=== PATIENT | male | born 1970 | race Caucasian/White ===

== ENCOUNTER 2020-06-07 13:36 | Inpatient (IN) | payer MEDICAID ==
[~2020-06-07] VITALS: Ht 165.1 cm; Wt 73.9 kg
[2020-06-07] MEDS ORDERED: DEXAMETHASONE 10 MG/ML VIAL IV ONE (14:00)
[2020-06-07] MEDS ORDERED: CEFTRIAXONE 1 G PREMIX 50 ML IV ONE (14:00)
[2020-06-07] MEDS ORDERED: AZITHROMYCIN 500 MG in DEXT 5% WATER 250 ML IV ONE (14:00)
[2020-06-07] MEDS ORDERED: SODIUM CHLORIDE 0.9% 1,000 ML IV ONE (14:00)
[2020-06-07 15:23] LABS: HEMATOCRIT. 32.7 % (42.0-52.0); HEMOGLOBIN. 10.2 g/dL (14.0-18.0); MEAN CORPUSCULAR HEMOGLOBIN 19.9 pg (28.0-32.0); MEAN CORPUSCULAR VOLUME 63.9 fL (80.0-94.0); MEAN PLATELET VOLUME 8.9 fl (7.4-10.4); PLATELET 317 x1000/uL (130-400); RED BLOOD CELL COUNT 5.11 mill/uL (4.7-6.1); RED CELL DISTRIBUTION WIDTH 20.1 % (11.6-14.6)
[2020-06-07 15:29] LABS: CHLORIDE 98 mEq/L (98-107)
[2020-06-07 15:35] LABS: D-DIMER 1.61 mg/L FEU (<0.50); INR 1.1; PROTHROMBIN TIME 11.5 sec (9.6-11.0)
[2020-06-07 15:51] LABS: PLATELET ESTIMATE NORMAL
[2020-06-07 15:58] LABS: FIBRINOGEN > 850 mg/dL (200-400)
[2020-06-07] MEDS ORDERED: ENOXAPARIN 80MG/0.8ML SYR SUBCUT ONE (16:15)
[2020-06-07] MEDS ORDERED: MAGNESIUM/ALUMINUM HYDROXIDE/SIMETHICONE 30ML UDC PO PRN (18:00)
[2020-06-07] MEDS ORDERED: ONDANSETRON HCL 4MG/2ML INJ IV PRN (18:00)
[2020-06-07] MEDS ORDERED: CLONIDINE 0.1MG TABLET PO PRN (18:00)
[2020-06-07] MEDS ORDERED: DOCUSATE SODIUM 100MG CAPSULE PO PRN (18:00)
[2020-06-07] MEDS ORDERED: IOHEXOL-350 100 ML BOTTLE ONE (22:02)
[2020-06-08] MEDS: CEFTRIAXONE 1 G PREMIX 50 ML IV SCH ×2 (04:25→20:52)
[2020-06-08] MEDS: ENOXAPARIN 40MG/0.4ML SYR SUBCUT SCH (08:30)
[2020-06-08 16:58] LABS: HEMATOCRIT. 31.2 % (42.0-52.0); HEMOGLOBIN. 9.6 g/dL (14.0-18.0); MEAN CORPUSCULAR HEMOGLOBIN 19.5 pg (28.0-32.0); MEAN CORPUSCULAR VOLUME 63.3 fL (80.0-94.0); MEAN PLATELET VOLUME 8.6 fl (7.4-10.4); PLATELET 356 x1000/uL (130-400); RED BLOOD CELL COUNT 4.93 mill/uL (4.7-6.1); RED CELL DISTRIBUTION WIDTH 20.1 % (11.6-14.6)
[2020-06-08 17:01] LABS: CHLORIDE 101 mEq/L (98-107)
[2020-06-08 17:31] LABS: PLATELET ESTIMATE NORMAL
[2020-06-08 18:12] LABS: CLARITY URINE CLEAR (CLEAR); COLOR URINE DARK YELLOW (YELLOW); KETONES URINE 4+ (NEGATIVE); LEUKOCYTE ESTERASE URINE TRACE (NEGATIVE); NITRITE URINE NEGATIVE (NEGATIVE); OCCULT BLOOD URINE 1+ (NEGATIVE); PROTEIN URINE 2+ (NEGATIVE); SPECIFIC GRAVITY URINE 1.027 (1.005-1.030)
[2020-06-08] MEDS ORDERED: AZITHROMYCIN 500 MG in DEXT 5% WATER 250 ML IV SCH (20:00)
[2020-06-09 04:00] VITALS: BP 104/62
[2020-06-09] MEDS: GUAIFENESIN 200MG/10ML SUGAR FREE UDC PO PRN (04:30)
[2020-06-09] MEDS: ACETAMINOPHEN 325MG TABLET PO PRN ×3 (04:30→21:31)
[2020-06-09 08:00] VITALS: BP 105/63
[2020-06-09] MEDS: ENOXAPARIN 40MG/0.4ML SYR SUBCUT SCH (09:18)
[2020-06-09 16:00] VITALS: BP 115/64
[2020-06-09 20:00] VITALS: BP 137/78
[2020-06-09] MEDS: CEFTRIAXONE 1,000 MG in DEXTROSE 5% WATER 50 ML IV SCH (21:11)
[2020-06-09] MEDS: AZITHROMYCIN 500 MG in DEXT 5% WATER 250 ML IV SCH (21:12)
[2020-06-10] VITALS: BP 128/66
[2020-06-10 04:00] VITALS: BP 112/76
[2020-06-10 08:00] VITALS: BP 114/74
[2020-06-10] MEDS: ENOXAPARIN 40MG/0.4ML SYR SUBCUT SCH (10:46)
[2020-06-10] MEDS: ACETAMINOPHEN 325MG TABLET PO PRN (10:56)
[2020-06-10 16:00] VITALS: BP 122/77
[2020-06-10] MEDS: DEXAMETHASONE 10 MG/ML VIAL IV SCH (17:36)
[2020-06-10 20:00] VITALS: BP 125/73
[2020-06-10] MEDS: CEFTRIAXONE 1,000 MG in DEXTROSE 5% WATER 50 ML IV SCH (22:01)
[2020-06-10] MEDS: AZITHROMYCIN 500 MG in DEXT 5% WATER 250 ML IV SCH (22:02)
[2020-06-11] VITALS: BP 118/60
[2020-06-11 04:00] VITALS: BP 113/76
[2020-06-11 08:00] VITALS: BP 111/68
[2020-06-11] MEDS: GUAIFENESIN 200MG/10ML SUGAR FREE UDC PO PRN (08:49)
[2020-06-11] MEDS: DEXAMETHASONE 10 MG/ML VIAL IV SCH (08:49)
[2020-06-11] MEDS: ENOXAPARIN 40MG/0.4ML SYR SUBCUT SCH (08:50)
[2020-06-11 09:10] LABS: CHLORIDE 96 mEq/L (98-107)
[2020-06-11 12:00] VITALS: BP 108/64
[2020-06-11 16:00] VITALS: BP 105/63
[2020-06-11 18:18] LABS: BG BASE EXCESS 3.1 mmol/L (-2.0-2.0); BG CARBOXYHEMOGLOBIN 0.3 % (0.5-1.5); BG DEOXYHEMOGLOBIN 14.7 % (0.0-5.0); BG FRACTION INSPIRED OXYGEN 100; BG HCO3 ACT 26.5 mmol/L (22.0-26.0); BG METHEMOGLOBIN 0.2 % (0.0-1.5); BG OXYGEN SATURATION 85.2 % (92.0-98.5); BG OXYHEMOGLOBIN 84.8 % (94.0-97.0); BG PCO2 36.1 mmHg (35.0-45.0); BG PH 7.484 (7.350-7.450); BG PO2 50.9 mmHg (75.0-100.0); BG SAMPLE SITE RIGHT BRACHIAL; BG TOTAL HEMOGLOBIN 10.4 g/dL (12.0-18.0); BG VENT MODE MASK - BIPAP
[2020-06-11 20:00] VITALS: BP 104/61
[2020-06-11] MEDS: AZITHROMYCIN 500 MG in DEXT 5% WATER 250 ML IV SCH (20:00)
[2020-06-11] MEDS: CEFTRIAXONE 1,000 MG in DEXTROSE 5% WATER 50 ML IV SCH (21:17)
[2020-06-12] VITALS (7 sets, daily range): BP systolic 115–124; BP diastolic 60–78
[2020-06-12] MEDS: DEXAMETHASONE 10 MG/ML VIAL IV SCH (09:10)
[2020-06-12] MEDS: ENOXAPARIN 40MG/0.4ML SYR SUBCUT SCH (09:11)
[2020-06-12] MEDS ORDERED: LORAZEPAM 2MG/ML CPJ IV PRN (11:45)
[2020-06-13] VITALS: BP 128/57
[2020-06-13 04:00] VITALS: BP 115/76
[2020-06-13 08:00] VITALS: BP 139/79
[2020-06-13] MEDS: DEXAMETHASONE 10 MG/ML VIAL IV SCH (08:25)
[2020-06-13] MEDS: ENOXAPARIN 40MG/0.4ML SYR SUBCUT SCH (08:25)
[2020-06-13 12:00] VITALS: BP 122/80
[2020-06-13 16:00] VITALS: BP 144/86
[2020-06-13 20:00] VITALS: BP 114/71
[2020-06-14 00:01] VITALS: BP 112/70
[2020-06-14 04:00] VITALS: BP 112/63
[2020-06-14 08:00] VITALS: BP 111/66
[2020-06-14] MEDS: DEXAMETHASONE 10 MG/ML VIAL IV SCH (08:16)
[2020-06-14] MEDS: ENOXAPARIN 40MG/0.4ML SYR SUBCUT SCH (08:16)
[2020-06-14 12:00] VITALS: BP 112/67
[2020-06-14 16:00] VITALS: BP 110/74
[2020-06-14 20:00] VITALS: BP 119/70
[2020-06-15] VITALS: BP 101/62
[2020-06-15 04:00] VITALS: BP 103/66
[2020-06-15] MEDS: ENOXAPARIN 40MG/0.4ML SYR SUBCUT SCH (08:21)
[2020-06-15] MEDS: DEXAMETHASONE 10 MG/ML VIAL IV SCH (08:22)
[2020-06-15 12:00] VITALS: BP 123/63
[2020-06-15 16:00] VITALS: BP 96/63
[2020-06-15 20:00] VITALS: BP 123/79
[2020-06-16] VITALS: BP 129/79
[2020-06-16 04:00] VITALS: BP 124/75
[2020-06-16 08:00] VITALS: BP 126/78
[2020-06-16] MEDS: ENOXAPARIN 40MG/0.4ML SYR SUBCUT SCH (09:33)
[2020-06-16] MEDS: DEXAMETHASONE 10 MG/ML VIAL IV SCH (09:33)
[2020-06-16 12:00] VITALS: BP 128/71
[2020-06-16 16:00] VITALS: BP 123/78
[2020-06-17] VITALS (7 sets, daily range): BP systolic 113–133; BP diastolic 68–93
[2020-06-17] MEDS: DEXAMETHASONE 10 MG/ML VIAL IV SCH (08:59)
[2020-06-17] MEDS: ENOXAPARIN 40MG/0.4ML SYR SUBCUT SCH (09:36)
[2020-06-18] VITALS: BP 130/60
[2020-06-18 04:00] VITALS: BP 117/79
[2020-06-18 08:00] VITALS: BP 124/79
[2020-06-18] MEDS: ENOXAPARIN 40MG/0.4ML SYR SUBCUT SCH (10:33)
[2020-06-18] MEDS: DEXAMETHASONE 10 MG/ML VIAL IV SCH (10:33)
[2020-06-18 12:00] VITALS: BP 141/79
[2020-06-18 16:00] VITALS: BP 130/85
[2020-06-18 20:00] VITALS: BP 119/77
[2020-06-19] VITALS: BP 111/88
[2020-06-19 04:00] VITALS: BP 123/75
[2020-06-19 06:46] LABS: CHLORIDE 101 mEq/L (98-107)
[2020-06-19 07:17] LABS: HEMATOCRIT. 36.5 % (42.0-52.0); HEMOGLOBIN. 11.6 g/dL (14.0-18.0); MEAN CORPUSCULAR HEMOGLOBIN 20.7 pg (28.0-32.0); MEAN CORPUSCULAR VOLUME 65.2 fL (80.0-94.0); MEAN PLATELET VOLUME 8.4 fl (7.4-10.4); PLATELET 340 x1000/uL (130-400); RED CELL DISTRIBUTION WIDTH 20.8 % (11.6-14.6)
[2020-06-19 08:00] VITALS: BP 108/78
[2020-06-19] MEDS: ENOXAPARIN 40MG/0.4ML SYR SUBCUT SCH (08:03)
[2020-06-19] MEDS: DEXAMETHASONE 10 MG/ML VIAL IV SCH (08:03)
[2020-06-19 12:00] VITALS: BP 122/80
[2020-06-19 16:00] VITALS: BP 125/83
[2020-06-19 16:45] LABS: PLATELET ESTIMATE NORMAL
[2020-06-19 20:00] VITALS: BP 125/85
[2020-06-20] VITALS: BP 118/70
[2020-06-20 04:00] VITALS: BP 127/79
[2020-06-20 08:00] VITALS: BP 114/83
[2020-06-20] MEDS: DEXAMETHASONE 10 MG/ML VIAL IV SCH (10:54)
[2020-06-20] MEDS: ENOXAPARIN 40MG/0.4ML SYR SUBCUT SCH (11:37)
[2020-06-20 12:00] VITALS: BP 123/80
[2020-06-20 16:00] VITALS: BP 114/78
[2020-06-20 20:00] VITALS: BP 126/82
[2020-06-21] VITALS (7 sets, daily range): BP systolic 121–140; BP diastolic 78–88
[2020-06-21] MEDS: ENOXAPARIN 40MG/0.4ML SYR SUBCUT SCH (10:37)
[2020-06-21] MEDS: METHYLPREDNISOLONE SOD SUCC 40 MG/ML VIAL IV SCH (16:38)
[2020-06-21] MEDS ORDERED: LORAZEPAM 2MG/ML CPJ IV PRN (17:30)
[2020-06-21 17:53] LABS: BG BASE EXCESS -2.2 mmol/L (-2.0-2.0); BG CARBOXYHEMOGLOBIN 0.9 % (0.5-1.5); BG DEOXYHEMOGLOBIN 12.3 % (0.0-5.0); BG FRACTION INSPIRED OXYGEN 100; BG HCO3 ACT 20.8 mmol/L (22.0-26.0); BG METHEMOGLOBIN 0.2 % (0.0-1.5); BG OXYGEN SATURATION 87.6 % (92.0-98.5); BG OXYHEMOGLOBIN 86.6 % (94.0-97.0); BG PCO2 30.6 mmHg (35.0-45.0); BG PH 7.451 (7.350-7.450); BG PO2 55.7 mmHg (75.0-100.0); BG SAMPLE SITE RIGHT BRACHIAL; BG TOTAL HEMOGLOBIN 12.5 g/dL (12.0-18.0); BG VENT MODE VENT - CPAP
[2020-06-22] VITALS (7 sets, daily range): BP systolic 97–141; BP diastolic 52–92
[2020-06-22] MEDS: ENOXAPARIN 40MG/0.4ML SYR SUBCUT SCH (08:29)
[2020-06-22] MEDS: METHYLPREDNISOLONE SOD SUCC 40 MG/ML VIAL IV SCH ×2 (08:29→17:52)
[2020-06-22] MEDS ORDERED: SODIUM CHLORIDE 0.45% 250 ML IV SCH (13:15)
[2020-06-22] MEDS ORDERED: DILTIAZEM HCL 5MG/ML 5ML VIAL IV PRN (13:15)
[2020-06-22] MEDS ORDERED: DILTIAZEM HCL 5MG/ML 5ML VIAL IV NR (16:00)
[2020-06-22] MEDS ORDERED: AMIODARONE HCL 50MG/ML 3ML VIAL IV ONE (16:00)
[2020-06-22] MEDS ORDERED: AMIODARONE HCL 150 MG in DEXT 5% WATER 100 ML IV NR (17:30)
[2020-06-22] MEDS ORDERED: AMIODARONE HCL 900 MG in DEXT 5% WATER 482 ML IV SCH (17:30)
[2020-06-22] MEDS: DILTIAZEM HCL 30MG TABLET PO SCH ×4 (18:00→23:12)
[2020-06-22 20:14] LABS: CHLORIDE 109 mEq/L (98-107)
[2020-06-23] VITALS: BP 109/76
[2020-06-23 00:19] LABS: BG BASE EXCESS -15.9 mmol/L (-2.0-2.0); BG CARBOXYHEMOGLOBIN 0.3 % (0.5-1.5); BG DEOXYHEMOGLOBIN 4.3 % (0.0-5.0); BG FRACTION INSPIRED OXYGEN 100; BG HCO3 ACT 10.5 mmol/L (22.0-26.0); BG METHEMOGLOBIN 0.5 % (0.0-1.5); BG OXYGEN SATURATION 95.7 % (92.0-98.5); BG OXYHEMOGLOBIN 94.9 % (94.0-97.0); BG PH 7.208 (7.350-7.450); BG PO2 101.1 mmHg (75.0-100.0); BG SAMPLE SITE RIGHT RADIAL; BG TOTAL HEMOGLOBIN 12.2 g/dL (12.0-18.0); BG TOTAL RESPIRATORY RATE 40 b/min; BG VENT MODE MASK - CPAP
[2020-06-23 01:04] LABS: HEMATOCRIT 39.6 % (42.0-52.0); HEMOGLOBIN 11.4 g/dL (14.0-18.0); MEAN CORPUSCULAR HEMOGLOBIN 20.1 pg (28.0-32.0); PLATELET 576 x1000/uL (130-400); RED BLOOD CELL COUNT 5.66 mill/uL (4.7-6.1); RED CELL DISTRIBUTION WIDTH 22.6 % (11.6-14.6)
[2020-06-23] MEDS ORDERED: SODIUM BICARBONATE 8.4% 1 MEQ/ML 50ML SYR IV NR ×2 (01:30→11:00)
[2020-06-23] MEDS: DILTIAZEM HCL 30MG TABLET PO SCH ×2 (02:44→11:56)
[2020-06-23 04:00] VITALS: BP 133/90
[2020-06-23 06:42] LABS: HEMATOCRIT 34.8 % (42.0-52.0); HEMOGLOBIN 10.5 g/dL (14.0-18.0); MEAN CORPUSCULAR HEMOGLOBIN 20.8 pg (28.0-32.0); PLATELET 519 x1000/uL (130-400); RED BLOOD CELL COUNT 5.04 mill/uL (4.7-6.1); RED CELL DISTRIBUTION WIDTH 22.4 % (11.6-14.6)
[2020-06-23 08:00] VITALS: BP 93/43
[2020-06-23] MEDS: ENOXAPARIN 40MG/0.4ML SYR SUBCUT SCH (09:02)
[2020-06-23] MEDS: METHYLPREDNISOLONE SOD SUCC 40 MG/ML VIAL IV SCH (09:02)
[2020-06-23] MEDS ORDERED: CITRIC ACID/SODIUM CITRATE SOLN 30ML UDC PO SCH (11:00)
[2020-06-23 12:00] VITALS: BP 89/53
[2020-06-23] MEDS ORDERED: SODIUM CHLORIDE 0.45% 1,000 ML IV SCH (13:30)
[2020-06-23 16:42] VITALS: BP 141/81
== END 2020-06-23 17:20 | disposition expired | DRG 720 ==
LOC: ER 13:36 → 8WST 16:11 → EDBEDREQ 16:13 → ENRESERV 06-08 22:06
PROVIDERS: ADMIT Hospitalist; ATTEND Hospitalist
PROC: 5A09557 Assistance with Respiratory Ventilation, Greater than 96 Consecutive Hours, Continuous Positive Airway Pressure (ICD-10-PCS; 2020-06-10)
PROC: 0BH17EZ Insertion of Endotracheal Airway into Trachea, Via Natural or Artificial Opening (ICD-10-PCS; principal; 2020-06-23)
PROC: 5A12012 Performance of Cardiac Output, Single, Manual (ICD-10-PCS; 2020-06-23)
DX: A41.89 Other specified sepsis (principal); U07.1 COVID-19; J12.82 Pneumonia due to coronavirus disease 2019; J96.01 Acute respiratory failure with hypoxia; E87.1 Hypo-osmolality and hyponatremia; E78.00 Pure hypercholesterolemia, unspecified; E43 Unspecified severe protein-calorie malnutrition; D63.8 Anemia in other chronic diseases classified elsewhere; E78.5 Hyperlipidemia, unspecified; E86.0 Dehydration; E87.0 Hyperosmolality and hypernatremia; E87.2 Acidosis; G93.40 Encephalopathy, unspecified; I47.1 Supraventricular tachycardia; I48.91 Unspecified atrial fibrillation; J98.2 Interstitial emphysema; N17.9 Acute kidney failure, unspecified; R65.20 Severe sepsis without septic shock; Z82.49 Family history of ischemic heart disease and other diseases of the circulatory system; Z68.27 Body mass index [BMI] 27.0-27.9, adult
CPT/HCPCS: 36415; 36600; 71045; 71275; 76770; 80048; 80053; 81003; 82375; 82728; 82805; 82962; 83605; 83735; 83880; 84145; 84484; 85025; 85027; 85379; 85384; 86140; 87635; 93005; 94003; 94660; 96365; 96367; 96372; 99285; J0282; J0456; J0696; J1100; J1650; J2060; J2920; J3490; J7030; J7040; J7060; Q9967